=== PATIENT | male | born 1975 | race Caucasian/White ===

== ENCOUNTER 2018-06-28 14:00 | Inpatient (IN) | payer OTHER ==
[~2018-06-28] VITALS: Ht 167.6 cm; Wt 130.6 kg
[2018-06-28 14:05] VITALS: BP 148/114
--- NOTE | 2018-06-28 14:15 | NUR ---
NO BEDS AVAILABLE, PT BEING PLACED AT THE NURSES STATION FOR CLOSE OBSERVATION. SUICIDE PRECAUTIONS IMPLEMENTED. FOOD AND BEVERAGE INTERN AND ER MD NOTIFIED.
[2018-06-28] MEDS ORDERED: NACL 0.9% 1,000 ML IV ONE (14:29)
[2018-06-28 14:53] LABS: BASOPHILS % (AUTO) 0.3 % (0.0-2.0); EOSINOPHILS % (AUTO) 0.1 % (0.0-4.0); HEMATOCRIT 45.9 % (36-52); HEMOGLOBIN 15.7 g/dL (12.0-18.0); LYMPHOCYTES # (AUTO) 1.6 K/uL (2.0-11.5); LYMPHOCYTES % (AUTO) 10.8 % (20.5-51.1); MEAN CORPUSCULAR HEMOGLOBIN 29 pg (27-31); MEAN CORPUSCULAR HGB CONC 34 g/dL (33-37); MONOCYTES # (AUTO) 1.1 K/uL (0.8-1.0); MONOCYTES % (AUTO) 7.5 % (1.7-9.3); NEUTROPHILS # (AUTO) 12.1 K/uL (1.8-7.7); NEUTROPHILS % (AUTO) 81.3 % (42.2-75.2); PLATELET COUNT (AUTO) 271 K/uL (140-450); RED BLOOD CELL COUNT(AUTO) 5.41 MIL/uL (4.20-6.10); RED CELL DISTRIBUTION WIDTH 13.9 % (11.6-13.7); WHITE BLOOD COUNT (AUTO) 14.8 K/uL (4.8-10.8)
--- NOTE | 2018-06-28 14:56 | NUR ---
PATIENT AMBULATED WITH ASSISTANCE TO BED 4.
--- NOTE | 2018-06-28 15:05 | NUR ---
PT WAS PLACED ON 5150 HOLD.
[2018-06-28 15:09] LABS: ANION GAP 16.2 (8-16); CHLORIDE 99 mmol/L (98-107); GFR ARICAN-AMERICAN 105 mL/min (>90); GLUCOSE 88 mg/dL (74-106); POTASSIUM 4.2 mmol/L (3.5-5.1); SODIUM SERUM 135 mmol/L (136-145); UREA NITROGEN, BLOOD 11 mg/dL (7-18)
[2018-06-28 15:14] LABS: ALBUMIN 4.2 g/dL (3.4-5.0); ASPARTATE AMINOTRANSFERASE 79 U/L (15-37); TOTAL BILIRUBIN 0.8 mg/dL (0.0-1.0)
[2018-06-28 15:15] LABS: SALICYLATE < 2.8 mg/dL (2.8-20.0)
[2018-06-28 15:17] LABS: ACETAMINOPHEN < 0.5 ug/ml (10-30)
--- NOTE | 2018-06-28 15:29 | NUR ---
PATIENT MOVED TO ER BED 5.
--- NOTE | 2018-06-28 15:45 | NUR ---
PT WAS DROP BY HIS COUSIN HERE IN ER DUE TO SUICIDAL IDEATION; PER PT HIS CHESTED ON HIM AND HE FEEL SO DEPRESSED THAT HE WANTS TO COMMIT SUICIDE; ASKED PT IF HE HAS A PLAN, PT STATES HE WILL JUMP FROM THE HIGHEST BRIDGE. PT HAS A HX OF SI; PT JUMP OFF A BRIDGE 1 1/2 YEARS AGO TO COMMIT SUICIDE AND ENDED UP HURTING HIS RT FOOT FROM WHICH HE UNDERGONE SURGERY; PT I SHEARING VOICES TELLING HIM TO HURT HIMSELF BUT DENIES HURTING OTHER; ALL BELONGING WERE SECURED;ONE TO ONE MONITORING IMPLEMENTED;PLACED PT CLOSE TO NURSE STATION; ER MD NOTIFIED OF PT'S CONDITION.
--- NOTE | 2018-06-28 15:46 | NUR ---
PT ADMITS TAKING METH AND ALCOHOL TODAY.
--- NOTE | 2018-06-28 16:05 | NUR ---
[place] [employer] AT BEDSIDE
[2018-06-28 17:23] LABS: BARBITURATE, URINE NEG. ng/ml (NEG <=200); BENZODIAZEPINE, URINE POS. ng/mL (NEG <=200); CANNABINOID, URINE NEG. ng/mL (NEG <=50); COCAINE, URINE NEG. ng/mL (NEG <=300); OPIATE, URINE NEG. ng/mL (NEG <=2000); PHENCYCLIDINE SCREEN,URINE NEG. ng/mL (NEG <=25)
[2018-06-28 17:45] LABS: APPEARANCE,URINE CLEAR (CLEAR); BILIRUBIN,URINE SMALL (NEGATIVE); BLOOD, URINE NEGATIVE (NEGATIVE); COLOR,URINE YELLOW (YELLOW); LEUKOCYTE ESTERASE ,URINE NEGATIVE (NEGATIVE); NITRITE, URINE NEGATIVE (NEGATIVE); UGLUCOSE NEGATIVE (NEGATIVE)
--- NOTE | 2018-06-28 18:11 | NUR ---
PT RESTING QUIETLY AND CALM ON HIS BED; PT IS COOPERATIVE; EMT AT BEDSIDE.
--- NOTE | 2018-06-28 19:10 | NUR ---
pt placed on 5150 hold by [place] [employer] at 1600.
--- NOTE | 2018-06-28 19:11 | NUR ---
Pt ambulated to bathroom, no distress noted at this time. Sitter with patient.
--- NOTE | 2018-06-28 20:00 | NUR ---
Pt resting comfortably. No distress noted. Sitter at bedside
--- NOTE | 2018-06-28 21:00 | NUR ---
Pt resting comfortably. No distress noted. Sitter at bedside
--- NOTE | 2018-06-28 21:10 | NUR ---
Packet Faxed to deisgnated facilities [place]-[facility] intake [place]-[facility]am[facility] intake [place]-Yoj[facility] intake [facility]- Latoya intake [facility] - Shireen intake at this time the packet is being reviewed , will notify ER if placement is found.
--- NOTE | 2018-06-28 22:00 | NUR ---
Pt resting comfortably. No distress noted. Sitter at bedside
--- NOTE | 2018-06-28 23:00 | NUR ---
Pt resting comfortably. No distress noted. Sitter at bedside
--- NOTE | 2018-06-29 | NUR ---
Pt resting comfortably. No distress noted. Sitter at bedside
--- NOTE | 2018-06-29 01:00 | NUR ---
Pt resting comfortably. No distress noted. Sitter at bedside
--- NOTE | 2018-06-29 02:00 | NUR ---
Pt resting comfortably. No distress noted. Sitter at bedside
--- NOTE | 2018-06-29 03:08 | NUR ---
PT SLEEPING. NO DISTRESS NOTED. SITTER AT BEDSIDE
--- NOTE | 2018-06-29 04:11 | NUR ---
Patient will be admitted to [facility]. Admited to MS. Will go to room 109B. Belongings list completed. Report to SEVEN REYES.
--- NOTE | 2018-06-29 04:15 | NUR ---
RECEIVED REPORT FROM ER NURSE AT BEDSIDE FOR CONTINUITY OF CARE. PT AAOX4. PT IS ON A 5150 HOLD. PT IV NOTED LFA 20G SALINE LOCK. NO SOB NO S/S OF DISTRESS ON RA. BED LOWERED SITTER 1:1 AT BEDSIDE WILL CONTINUE TO MONITOR.
--- NOTE | 2018-06-29 05:07 | NUR ---
PT CURRENTLY RESTING IN BED WILL CONTINUE TO MONITOR.
[2018-06-29 05:13] VITALS: BP 157/84
--- NOTE | 2018-06-29 05:42 | NUR ---
PT SLEEPING NO SOB NO S/S OF DISTRESS ON RA. WILL CONTINUE TO MONITOR.
--- NOTE | 2018-06-29 07:30 | NUR ---
RECEIVED BEDSIDE REPORT FROM CARBON LAMP CLEANER NURSE. PATIENT IS AWAKE, ALERT AND ORIENTEDX4. NO SIGNS OF DISTRESS ON RA. SKIN HAS RLE SCAB. IV L FA 20G SALINE LOCK. CLEAN,DRY AND INTACT. MED SURGE. ROOM CHECKED FOR ANY HARMFUL OBJECTS. PATIENT AMBULATORY AND CONTINENT. BED IN LOW POSITION. WILL CONTINUE TO MONITOR. 1:1 SITTER AT BEDSIDE
[2018-06-29 08:00] VITALS: BP 109/55
--- NOTE | 2018-06-29 09:00 | NUR ---
PATIENT COMMUNICATING WELL WITH SITTER. NO SIGNS OF DISTRESS. WILL CONTINUE TO MONITOR
[2018-06-29] MEDS ORDERED: ALUMINUM HYD/MAG/SIMETHICONE 30 ML UDC PO PRN (10:25)
--- NOTE | 2018-06-29 11:00 | NUR ---
PATIENT IS SLEEPING. NO SIGNS OF DISTRESS. WILL CONTINUE TO MONITOR THE PATIENT.
--- NOTE | 2018-06-29 11:25 | NUR ---
PATIENT HAS BEEN SCREENED AND CATEGORIZED LOW NUTRITION RISK. PATIENT WILL BE SEEN WITHIN 7 DAYS OF ADMISSION. 07/06/18 KEILY SMITH MBA, RD
--- NOTE | 2018-06-29 12:09 | NUR ---
ADMINISTERED PRN MEDS FOR UPSET STOMACH. PATIENT TOLERATED WELL. NO SIGNS OF DISTRESS ON RA. WILL CONTINUE TO MONITOR THE PATIENT. 1:1 SITTER AT BEDSIDE
--- NOTE | 2018-06-29 14:40 | NUR ---
PATIENT INTERACTING WITH 1:1 SITTER. NO SIGNS OF DISTRESS. WILL CONTINUE TO MONITOR.
[2018-06-29 16:00] VITALS: BP 125/86
--- NOTE | 2018-06-29 16:00 | NUR ---
PATIENT SITTING ON BED INTERACTING WITH 1:1 SITTER. NO DISTRESS NOTED. WILL CONTINUE TO MONITOR.
--- NOTE | 2018-06-29 17:37 | NUR ---
PATIENT ASKED IF HE COULD WALK AROUND. CHARGE NURSE STATED WE NEEDED DOCTOR'S ORDER. PATIENT IS EATING. NO SIGNS OF DISTRESS. WILL CONTINUE TO MONITOR.
--- NOTE | 2018-06-29 17:47 | NUR ---
PATIENT AMBULATED AROUND PENG ONE TIME. PATIENT BACK IN BED. NO SIGNS OF DISTRESS. WILL CONTINUE TO MONITOR.
--- NOTE | 2018-06-29 19:10 | NUR ---
GAVE BEDSIDE REPORT TO ATMOSPHERIC DRIER TENDER NURSE. ENDORSED PATIENT IN STABLE CONDITION.
--- NOTE | 2018-06-29 19:15 | NUR ---
RECEIVED PT AWAKE INTERACTING WITH MELISSA, AUREAOX4, DENIES HALLUCINATION BUT STILL WITH SUICIDAL THOUGHTS BUT NO INTENT TO HARM SELF AT THIS TIME, DENIES ANY PAIN, PLAN OF CARE DISCUSS, LYNETTETER IN PLACE.
--- NOTE | 2018-06-29 19:50 | NUR ---
PT ANXIOUS AND RESTLESS, REQUESTING TO AMBULATE ON THE HALLWAY, PAGED DR CAMERON COVERING FOR DR KASPER, NEW ORDERS RECEIVED.
[2018-06-29] MEDS: QUEtiapine FUMARATE 100 MG TAB PO SCH (20:16)
[2018-06-29] MEDS: risperiDONE 1 MG TAB PO SCH (20:17)
--- NOTE | 2018-06-29 20:20 | NUR ---
DUE PSYCH MEDICATION ADMINISTERED, MEDICATED WITH ATIVAN PO X1 DOSE FOR ANXIETY ORDERED, PT CALM AND COOPERATIVE AT THIS TIME, ALL NEEDS ATTENDED, SITTER IN PLACE.
[2018-06-29] MEDS ORDERED: LORazepam 1 MG TAB PO SCH (21:00)
--- NOTE | 2018-06-29 21:50 | NUR ---
ROUNDS MADE, PT SLEEPING, NO SIGNS OF DISTRESS,MONITORED CLOSELY.
[2018-06-29 23:00] VITALS: BP 132/70
--- NOTE | 2018-06-29 23:00 | NUR ---
PT SLEEPING, VITAL SIGNS STABLE, NO DISTRESS NOTED, CONTINUE TO MONITOR CLOSELY, SITTER IN PLACE.
--- NOTE | 2018-06-30 04:00 | NUR ---
PT SNORING, NO SIGNS OF DISTRESS, CONTINUE TO MONITOR CLOSELY, SITTER IN PLACE.
--- NOTE | 2018-06-30 05:54 | NUR ---
No vacancy found at any of the designated facilities at this time , will endorsed to AM shift to continue to look for placement.
--- NOTE | 2018-06-30 06:10 | NUR ---
PT AWAKE, CALM AND COOPERATIVE, AMBULATED TO BR WITH STEADY GAIT, AM LABS DRAWN, PT WENT BACK TO SLEEP, SITTER IN PLACE.
[2018-06-30 07:11] LABS: BASOPHILS % (AUTO) 0.6 % (0.0-2.0); EOSINOPHILS # (AUTO) 0.4 K/uL (0-0.4); EOSINOPHILS % (AUTO) 5.4 % (0.0-4.0); HEMATOCRIT 43.8 % (36-52); HEMOGLOBIN 14.6 g/dL (12.0-18.0); LYMPHOCYTES # (AUTO) 2.5 K/uL (2.0-11.5); LYMPHOCYTES % (AUTO) 36.1 % (20.5-51.1); MEAN CORPUSCULAR HEMOGLOBIN 29 pg (27-31); MEAN CORPUSCULAR HGB CONC 33 g/dL (33-37); MEAN CORPUSCULAR VOLUME 86.7 fL (80-94); MONOCYTES # (AUTO) 0.6 K/uL (0.8-1.0); MONOCYTES % (AUTO) 9.1 % (1.7-9.3); NEUTROPHILS # (AUTO) 3.3 K/uL (1.8-7.7); NEUTROPHILS % (AUTO) 48.8 % (42.2-75.2); PLATELET COUNT (AUTO) 246 K/uL (140-450); RED BLOOD CELL COUNT(AUTO) 5.06 MIL/uL (4.20-6.10); WHITE BLOOD COUNT (AUTO) 6.8 K/uL (4.8-10.8)
--- NOTE | 2018-06-30 07:15 | NUR ---
PT SLEEPING, NO SIGNS OF DISTRESS, REPORT GIVEN TO AMY BARRETT FOR CONTINUITY OF CARE.
--- NOTE | 2018-06-30 07:20 | NUR ---
RECEIVED PT REPORT FROM WELLNESS NURSE RN RN AT BEDSIDE. PT IS SLEEPING, ROUSED BY NAME, OX4. DENIES HALLUCINATION BUT STILL HAS SUICIDAL THOUGHTS. DENIES ANY PAIN, PLAN OF CARE DISCUSSED, PT VERBALIZED UNDERSTANDING. BED IN LOWEST POSITION, 1:[address] WILL CONTINUE TO MONITOR.
[2018-06-30 08:00] VITALS: BP 109/69
--- NOTE | 2018-06-30 08:30 | NUR ---
PT HAD BREAKFAST, VITALS TAKEN. PT IS COOPERATIVE.
[2018-06-30] MEDS: risperiDONE 1 MG TAB PO SCH ×2 (09:58→20:37)
[2018-06-30] MEDS: ESCITALOPRAM 20 MG TAB PO SCH (09:58)
--- NOTE | 2018-06-30 11:08 | NUR ---
Called [facility], s/w House SUP. No beds at this time.
--- NOTE | 2018-06-30 11:12 | NUR ---
Called [facility], s/w Gordon. No available beds.
--- NOTE | 2018-06-30 12:35 | NUR ---
PT HAD LUNCH. NO S/S OF ACUTE DISTRESS.
--- NOTE | 2018-06-30 14:30 | NUR ---
PT HAD BMX1 AND URINE X1. NO S/S OF DISTRESS ON ROOM AIR. STILL HAS SUICIDAL THOUGHTS. 1:[address]
[2018-06-30 16:00] VITALS: BP 110/69
--- NOTE | 2018-06-30 17:20 | NUR ---
PT HAVING SHOWER, SITTER IS WITH PT IN SHOWER ROOM.
--- NOTE | 2018-06-30 19:10 | NUR ---
RECEIVED REPORT FROM DAY SHIFT NURSE, ARNOLD, AT PT BEDSIDE. PT IN STABLE CONDITION. PT IS SLEEPING IN BED BUT EASILY AROUSABLE. PT IS ON RA WITH RESPIRATIONS EVEN AND UNLABORED. IV ACCESS IN L AC SALINE LOCKED. IV IS PATENT AND INTACT. PT SKIN IS INTACT. NO C/O PAIN AT THIS TIME. BED IS LOCKED, LOW POSITION WITH SIDE RAILS UP X2. 1:1 SITTER IN ROOM. WILL CONTINUE TO MONITOR PT.
--- NOTE | 2018-06-30 19:10 | NUR ---
ENDORSED PT TO DIE ATTACHING MACHINE TENDER AMY TAYLOR. PT IN STABLE CONDITION.
[2018-06-30] MEDS: QUEtiapine FUMARATE 100 MG TAB PO SCH (20:37)
--- NOTE | 2018-06-30 20:37 | NUR ---
ADMINISTERED SCHEDULED MEDICATIONS. PT TOLERATED WELL. ALL OTHER NEEDS ARE MET AT THIS TIME. NO S/SX OF DISTRESS. 1:1 SITTER IN ROOM. WILL CONTINUE TO MONITOR.
[2018-07-01] VITALS: BP 125/62
--- NOTE | 2018-07-01 00:13 | NUR ---
PT ASLEEP IN BED. NO S/SX OF DISTRESS. 1:1 SITTER IN ROOM. WILL CONTINUE TO MONITOR PT.
--- NOTE | 2018-07-01 00:39 | NUR ---
Still no bed vacancies @ the following facilities. [facility], s/w Medardo. [facility], s/w Pamela. [facility], s/w Nena. [facility], s/w Dior. [facility], s/w Karen. [facility], s/w Kaylan.
--- NOTE | 2018-07-01 04:00 | NUR ---
PT ASLEEP IN BED. 1:1 SITTER IN ROOM. NO S/SX OF DISTRESS. WILL CONTINUE TO MONITOR.
--- NOTE | 2018-07-01 07:05 | NUR ---
ENDORSED PT TO DAY SHIFT NURSE FOR CONTINUITY OF CARE. PT IN STABLE CONDITION.
--- NOTE | 2018-07-01 07:06 | NUR ---
REVEIVED REPORT FROM PM NURSE AT BEDSIDE. PT SLEEPING AT THIS TIME. PT HAS SL IV 22G ON LFT FA. DENIES ANY PAIN. PT ON 5150 HOLD, TO BE RENEWED AT 1500 TODAY. PER PM NURSE PT KEEPS SLEEPING MOST OF TIME. SEEN BY PSYCH DOC ALREADY. WAITING FOR PLACEMENT. NO SIGN OF DISTRESS NOTED. WILL CONTINUE TO MONITOR PT.
[2018-07-01 08:00] VITALS: BP 130/84
--- NOTE | 2018-07-01 08:57 | NUR ---
Late entry: Iv fluids 0.9NS ran at 100 ml/hr ending at 3150 06-29-18
[2018-07-01] MEDS: ESCITALOPRAM 20 MG TAB PO SCH (09:28)
[2018-07-01] MEDS: risperiDONE 1 MG TAB PO SCH ×2 (09:29→21:40)
--- NOTE | 2018-07-01 09:30 | NUR ---
ADMINISTERED MEDS TO PT ORDERED. PT SLEEPING AT THIS TIEM. WOKE UP TO VOICE. TOOK HIS MEDS. WENT BACK TO SLEEP. NO SIGN OF DISTRESS NOTED. PT CALM AND SLEEPING. WILL CONTINUE TO MONITOR PT.
--- NOTE | 2018-07-01 11:27 | NUR ---
CHECKED ON PT SLEEPING ON HIS BED AT THIS TIME , NO SIGN OF DISTRESS NOTED. WILL CONTINUE TO MONITOR PT.
[2018-07-01 16:00] VITALS: BP 104/56
--- NOTE | 2018-07-01 17:29 | NUR ---
the following facilities were contacted and no bed availability at this time: [facility], [facility], [facility].
--- NOTE | 2018-07-01 19:25 | NUR ---
ENDORSED PT TO PM NURSE AT BEDSIDE. PT IN STABLE CONDITION.
--- NOTE | 2018-07-01 19:25 | NUR ---
RECEIVED REPORT FROM DAY SHIFT NURSEPRATIBHA, AT PT BEDSIDE. PT IN STABLE CONDITION. PT IS AWAKE AND TALKING WITH SITTER. PT IS CALM AND RELAXED. PT IS ON RA WITH RESPIRATIONS EVEN AND UNLABORED. IV ACCESS IN L AC SALINE LOCKED. IV IS PATENT AND INTACT. PT SKIN IS INTACT. NO C/O PAIN AT THIS TIME. BED IS LOCKED, LOW POSITION WITH SIDE RAILS UP X2. 1:1 SITTER IN ROOM. WILL CONTINUE TO MONITOR PT.
[2018-07-01] MEDS: QUEtiapine FUMARATE 100 MG TAB PO SCH (21:40)
--- NOTE | 2018-07-01 21:40 | NUR ---
ADMINISTERED SCHEDULED MEDICATIONS. PT TOLERATING WELL. 1:1 SITTER AT BEDSIDE. WILL CONTINUE TO MONITOR.
--- NOTE | 2018-07-01 23:57 | NUR ---
PT ASLEEP IN BED. 1:1 SITTER IN ROOM. NO S/SX OF DISTRESS. WILL CONTINUE TO MONITOR.
[2018-07-02] VITALS: BP 142/93
--- NOTE | 2018-07-02 03:06 | NUR ---
NO CHANGE IN CONDITION. PT ASLEEP IN BED. 1:1 SITTER IN ROOM. NO S/SX OF DISTRESS. WILL CONTINUE TO MONITOR.
--- NOTE | 2018-07-02 07:14 | NUR ---
ENDORSED PT TO DAY SHIFT NURSE FOR CONTINUITY OF CARE. PT IN STABLE CONDITION.
--- NOTE | 2018-07-02 07:30 | NUR ---
RECEIVED PT AAOX4. NO SOB NOTED. NO C/O PAIN AT THIS TIME. IV TO LT FOREARM PATENT AND INTACT. CHEST CLEAR. ABDOMEN SOFT, BOWEL SOUNDS PRESENT. NO EDEMA NOTED. WITH SITTER AT THE BEDSIDE FOR 5150 HOLD. WILL MONITOR PT FOR SUICIDAL AND HOMICIDAL THOUGHTS. NO SUICIDAL/HOMICIDAL IDEATION NOTED AT THIS TIME. INSTRUCTED PT TO CALL FOR ASSISTANCE, VERBALIZED UNDERSTANDING.
[2018-07-02 08:00] VITALS: BP 123/80
--- NOTE | 2018-07-02 10:00 | NUR ---
PT COOPERATIVE WITH PLAN OF CARE. NO SIGNS OF SUICIDAL /HOMICIDAL IDEATION NOTED. WILL CONTINUE TO MONITOR.
[2018-07-02] MEDS: risperiDONE 1 MG TAB PO SCH ×2 (10:18→20:32)
[2018-07-02] MEDS: ESCITALOPRAM 20 MG TAB PO SCH (10:18)
--- NOTE | 2018-07-02 12:00 | NUR ---
PT CONSUMED 100% OF BREAKFAST AND LUNCH SERVINGS, FOOD TOLERATED WELL.
--- NOTE | 2018-07-02 15:15 | NUR ---
PT RESTING. NO SOB NOTED. NO COMPLAINTS MADE.
--- NOTE | 2018-07-02 19:18 | NUR ---
PT AWAKE. NO COMPLAINTS MADE. NO SUICIDAL IDEATION NOTED, STILL WITH 1:1 SITTER AT THE BEDSIDE. WILL ENDORSE TO NEXT SHIFT NURSE FOR CONTINUITY OF CARE.
--- NOTE | 2018-07-02 19:19 | NUR ---
RECEIVED REPORT FROM DAY SHIFT RN ANNE MARIE FOR CONTINUITY OF CARE. PT IS A/OX4, ON ROOM AIR. PT AMBULATES WITH STEADY GAIT, AND SKIN IS PINK/WARM/DRY AND INTACT. PT IS ABLE TO MAKE NEEDS KNOWN, AND ABLE TO FOLLOW COMMANDS. LUNGS SOUNDS CLEAR, HR EVEN AND REGULAR. PT HAS 20G IV TO LEFT FOREARM, ASYMPTOMATIC AND INTACT. PT DENIES ANY PAIN AT THIS TIME. VITAL SIGNS STABLE. NO SIGNS OF DISTRESS NOTED. PT POSITIONED FOR COMFORT. BED RAILS UP X2, BED IN LOWEST POSITION. WILL CONTINUE TO MONITOR. 1:1 SITTER IN ROOM
[2018-07-02] MEDS: QUEtiapine FUMARATE 100 MG TAB PO SCH (20:32)
--- NOTE | 2018-07-02 20:33 | NUR ---
ADMINISTERED SCHEDULED MEDICATIONS. PT TOLERATED WELL. PT VERBALIZED UNDERSTANDING OF MEDICATIONS.
--- NOTE | 2018-07-03 | NUR ---
VITAL SIGNS STABLE. NO SIGNS OF DISTRESS NOTED. PT POSITIONED FOR COMFORT. BED RAILS UP X2, BED IN LOWEST POSITION. WILL CONTINUE TO MONITOR. 1:1 SITTER IN ROOM
--- NOTE | 2018-07-03 03:26 | NUR ---
Spoke to Julianna REYES , still there are no beds available for placement , will continue to make calls for placement .
--- NOTE | 2018-07-03 05:57 | NUR ---
Will endorsed to AM shift to continue to look for placement .
[2018-07-03 05:58] VITALS: BP 134/87
--- NOTE | 2018-07-03 07:20 | NUR ---
ENDORSED PT TO DAY SHIFT RN JUAN DAVID FOR CONTINUITY OF CARE. PT IN STABLE CONDITION.
--- NOTE | 2018-07-03 07:25 | NUR ---
RECEIVED BEDSIDE REPORT FROM GLASS EDGER RN. PT IS AOX4, ON ROOM AIR. DENIES PAIN AND DISCOMFORT AT THIS TIME. SKIN INTACT. STATES HE HAS SUICIDAL THOUGHTS CURRENTLY AND STILL HAS AUDITORY AND VISUAL HALLUCINATIONS. 1:1 SITTER AT BESIDE FOR SUICIDAL IDEATION. AMBULATORY WITHOUT ASSIST. LUNGS CTA. HEART RHYTHM REGULAR. IV SITE IS ASYMPTOMATIC AND INTACT. ALL SAFETY PRECAUTIONS IN PLACE, WILL CONTINUE TO MONITOR. Addendum: 07/03/18 at 1256 by Emily Tee Meng, RN SAUL LORD
[2018-07-03] MEDS: risperiDONE 1 MG TAB PO SCH ×2 (09:11→21:14)
[2018-07-03] MEDS: ESCITALOPRAM 20 MG TAB PO SCH (09:11)
--- NOTE | 2018-07-03 10:04 | NUR ---
PT SLEEPING IN BED, AROUSABLE BY VOICE. CALM AND COOPERATIVE.
--- NOTE | 2018-07-03 12:57 | NUR ---
PT SLEEPING IN BED. RESPIRATIONS EVEN AND UNLABORED. WILL CONTINUE TO MONITOR.
--- NOTE | 2018-07-03 13:02 | NUR ---
Review faxed to [facility] director case management at [phone]
--- NOTE | 2018-07-03 15:29 | NUR ---
PATIENT SEEN WALKING IN [facility] HALLWAYS WITH SITTER BY SIDE.
--- NOTE | 2018-07-03 16:42 | NUR ---
PT RESTING IN BED, NO C/O PAIN OR DISCOMFORT. ALL SAFETY PRECAUTIONS IN PLACE, WILL CONTINUE TO MONITOR.
[2018-07-03 18:00] VITALS: BP 135/87
--- NOTE | 2018-07-03 18:41 | NUR ---
SLEEPING IN BED, RESPIRATIONS EVEN AND UNLABORED. NO S/S DISTRESS. WILL CONTINUE TO MONITOR.
--- NOTE | 2018-07-03 19:12 | NUR ---
ENDORSED POC TO COAL CHEMIST RN. PT IN STABLE CONDITION.
--- NOTE | 2018-07-03 19:13 | NUR ---
RECEIVED BEDSIDE REPORT FROM DAY SHIFT NURSE JUAN DAVID RN, PT STABLE, NO DISTRESS NOTED, IV TO L FA 20G PATENT INTACT, SL, PT ON ROOM AIR, NO SOB, PT CALM AND COOPERATIVE, INITIAL ASSESSMENT DONE, ALL SAFETY PRECAUTION MET, 1:1 SITTER AT BEDSIDE, WILL CONTINUE TO MONITOR.
[2018-07-03] MEDS: QUEtiapine FUMARATE 100 MG TAB PO SCH (21:14)
--- NOTE | 2018-07-03 21:14 | NUR ---
DUE MEDICATION ADMINISTERED, PT TOLERATED WELL, NO DISTRESS NOTED, CALL LIGHT WITHIN REACH, WILL CONTINUE TO MONITOR.
--- NOTE | 2018-07-03 21:59 | NUR ---
Still no psych beds available at the following facilities. [facility], s/w [place]. [facility], s/w Kofi. [facility], s/w Joseph. [facility], s/w Manda. [facility], s/w Darline
--- NOTE | 2018-07-03 23:10 | NUR ---
PT SLEEPING, NO DISTRESS NOTED, V/S TAKEN, WNL, SITTER AT BEDSIDE, WILL CONTINUE TO MONITOR.
[2018-07-03 23:51] VITALS: BP 128/85
--- NOTE | 2018-07-04 04:10 | NUR ---
PT SLEEPING, NO DISTRESS NOTED, CALL LIGHT WITHIN REACH, WILL CONTINUE TO MONITOR.
--- NOTE | 2018-07-04 07:30 | NUR ---
ENDORSED PT TO DAY SHIFT NURSE GUERA REYES, PT STABLE, NO DISTRESS NOTED. SITTER AT BEDSIDE.
--- NOTE | 2018-07-04 07:31 | NUR ---
RECEIVED REPORT FROM BORDER MEASURER AND CUTTER NURSE. PT IN STABLE CONDITION. RESPIRATIONS EVEN AND UNLABORED. IV INTACT AND PATENT. SAFETY MEASURES IN PLACE. BED IN LOW POSITION. SITTER AT BEDSIDE. WILL CONTINUE TO MONITOR.
[2018-07-04 08:00] VITALS: BP 106/65
[2018-07-04] MEDS: risperiDONE 1 MG TAB PO SCH (09:00)
--- NOTE | 2018-07-04 09:56 | NUR ---
CM NOTE PER THEO OF [facility] (PCP) PH# [phone], THERE IS NO AVAILABLE SCHEDULE WITH DR. GONZALEZ UNTIL JULY NEXT YEAR SO HE SCHEDULED PATIENT FOR OUTPATIENT FOLLOW UP WITH DR. NAKIA FAJARDO FROM THE SAME CLINIC AT [id number] [place] [id number] ON JULY 10 2018 8:40 AM. NOTIFIED GUERA, NURSE OF PATIENT, TO GIVE INSTRUCTIONS UPON DISCHARGE.
[2018-07-04] MEDS: ESCITALOPRAM 20 MG TAB PO SCH (10:01)
--- NOTE | 2018-07-04 12:04 | NUR ---
Contacted the following facilities, still no beds available at this time: [facility], [facility], [place], [facility], [facility]. [facility] will continue to follow up through out the day.
== END 2018-07-04 12:02 | disposition home or self-care (01) | DRG 426 ==
LOC: MED 14:00 → MTU 06-29 03:35
PROVIDERS: ADMIT Internal Medicine; ATTEND Internal Medicine
DX: E87.1 Hypo-osmolality and hyponatremia (principal); R45.851 Suicidal ideations; F20.9 Schizophrenia, unspecified; F15.10 Other stimulant abuse, uncomplicated; F41.9 Anxiety disorder, unspecified; E66.9 Obesity, unspecified; F31.9 Bipolar disorder, unspecified; E11.9 Type 2 diabetes mellitus without complications; F13.10 Sedative, hypnotic or anxiolytic abuse, uncomplicated; F17.210 Nicotine dependence, cigarettes, uncomplicated; Z68.36 Body mass index [BMI] 36.0-36.9, adult; Z91.5 Personal history of self-harm; Z79.84 Long term (current) use of oral hypoglycemic drugs
CPT/HCPCS: 36415; 80053; 80305; 81003; 84484; 85025; 87081; G0480; G0482